=== PATIENT | male | born 1955 | race African-American/Black ===

== ENCOUNTER 2020-01-07 10:27 | Emergency (ER) | payer MEDICARE, OTHER ==
[~2020-01-07] VITALS: Ht 167.6 cm; Wt 74.8 kg
[2020-01-07] MEDS ORDERED: SODIUM CHLORIDE 0.9% 1,000 ML IV ONE (10:30)
== END 2020-01-07 10:46 | disposition left against medical advice (07) ==
LOC: EDBD 10:27 → ER 10:27
DX: G40.909 Epilepsy, unspecified, not intractable, without status epilepticus (principal); V29.40XA Motorcycle driver injured in collision with unspecified motor vehicles in traffic accident, initial encounter; Y93.89 Activity, other specified; Y92.89 Other specified places as the place of occurrence of the external cause; Y99.8 Other external cause status